=== PATIENT | male | born 1970 | race African-American/Black ===

== ENCOUNTER 2016-12-30 08:28 | Inpatient (IN) | payer BC ==
--- NOTE | 2016-12-20 13:50 | PREOPHP ---
DATE OF ADMISSION: 12/30/2016 PREOPERATIVE INTERNAL MEDICINE CONSULTATION/MEDICAL HISTORY AND PHYSICAL Patient to have surgery with Dr. Kwabena Daley at [facility] 12/30/2016. REASON FOR CONSULTATION: Consultation requested by Dr. Kwabena Daley for medical evaluation and cl earance of a 46-year-old gentleman about to undergo surgery on his left hip. Thank you, Dr. Daley, for allowing us to participate in the care of this patient. HISTORY OF PRESENT ILLNESS: Mustapha Stauffer, a 46-year-old gentleman with problems ambulating second ankit to left hip pain is currently being admitted for correction of the above problem. In terms of h is prior surgical history, had a partial hip replacement on the right, which he was very pleased wit h and had arthroscopic surgery, 3 on his right knee and one on his left knee and also had left shoul marquita arthroscopic procedure. He has had no medical hospitalizations, has not broken any big bones. D oes not take any chronic medications. ALLERGIES: NOT ALLERGIC TO ANY MEDICATIONS. SOCIAL HISTORY: The patient is single, has 3 children in good health. He does not smoke. Alcohol socially. Does drink coffee. He is employed and usually does not have any difficulty sleeping at [facility]. FAMILY HISTORY: Both parents are alive. Father is 72, mother 69, both in good health. Two sisters are in good health. He knows of no family history of diabetes, heart, cancer, hypertension or stro ke. REVIEW OF SYSTEMS HEENT: Periodic headaches. CARDIORESPIRATORY: Denies any chest pain or shortness of breath. GASTROINTESTINAL: No melena or hematemesis. GENITOURINARY: No urgency, frequency. MUSCULOSKELETAL: Positive for left hip pain. NEUROPSYCHIATRIC: Unremarkable. GENERAL HEALTH: As above. PHYSICAL EXAMINATION: VITAL SIGNS: The patient's blood pressure was 130/80, pulse was 72 and regular, respirations were 1 8, temperature 98.7, height 71 inches, weight 220 pounds. GENERAL: The patient was noted to be a well-developed, well-nourished male, alert and cooperative, in no apparent acute distress, oriented to time, place, and person. HEAD, EARS, EYES, NOSE AND THROAT: Head was atraumatic. Eyes: Pupils were equal, reactive to ligh t and accommodation. Fundi were benign. Tympanic membranes were unremarkable. Nose was negative. Mouth was unremarkable. Fair oral hygiene was present. NECK: Supple without any rigidity. Trachea was midline. Thyroid was within normal limits. Neck v eins were flat. Carotid pulses were equal. No bruits were heard. BACK: Unremarkable. CHEST: Symmetrical. BREASTS AND AXILLARY: Did not reveal any masses. LUNGS: Clear to percussion and auscultation. HEART: PMI is fifth intercostal space at the midclavicular line. Regular sinus rhythm was noted. No significant murmurs, rubs, or gallops being elicited. ABDOMEN: Soft, good bowel sounds were noted. No significant organomegaly, masses, or tenderness. GENITALIA: Normal male external genitalia. RECTAL AND PROSTATIC: Per PCP. EXTREMITIES: Not revealing clubbing, edema or cyanosis. Peripheral pulses were physiologic. SKIN: Moist and warm without any eruptions. No gross lymphadenopathy was noted. NEUROLOGIC: Grossly intact. IMPRESSION: 1. Degenerative joint disease, left hip. 2. 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 3. Degenerative joint disease. 4. Stable health. DISCUSSION: Review of laboratory and other data revealed the following: The patient's chemistry pa bijal revealed normal electrolytes. Random glucose of 106, normal BUN and creatinine and liver functi on test, magnesium, CPK was minimally elevated. TSH, CBC, sed rate, UA, PT and PTT were normal. The patient's EKG was normal. Chest x-ray was normal as was his bladder scan, which revealed a residual of [address] Daley, I see no contraindication to this patient undergoing current proposed surgery under sigifredo ired form of anesthesia and will be more than happy to follow him with you during his stay at [facility]. Thank you again, Dr. Daley, for allowing us to participate in the care of this patient. Dictated By: WEI WEAVER/BROCK Conf#: [id number] DID#: [id number]
[2016-12-30] VITALS (28 sets, daily range): BP systolic 111–144; BP diastolic 59–88; PULSE 67–108; RESP 9–25; Ht 188 cm; Wt 99.0 kg
[~2016-12-30] VITALS: Ht 188 cm; Wt 99.0 kg
[~2016-12-30 08:28] MED LIST: LIDOCAINE 2% (SDV) 5 ML INJ ONE
--- NOTE | 2016-12-30 08:42 | HPN ---
Date/Time of Note Date/Time of Note DATE: 12/30/16 TIME: 08:42 Interval H&P Admission Note Pt. seen H&P reviewed: No system changes MARYAM BROWN MD December 30, 2016 08:42
[2016-12-30] MEDS ORDERED: oxyCODONE (CR) 10 MG TAB [oxyCONTIN] PO ONE (09:00)
[2016-12-30] MEDS ORDERED: CEFAZOLIN 2 GM/50 ML (PMX) 50 ML IVPB ONE (09:00)
[2016-12-30] MEDS ORDERED: LACTATED RINGER'S 1,000 ML IV* ONE (09:00)
[2016-12-30] MEDS ORDERED: DEXAMETHASONE 1 MG TAB PO ONE (09:00)
[2016-12-30] MEDS ORDERED: traMADol 50 MG TAB PO ONE (09:00)
[2016-12-30] MEDS ORDERED: GABAPENTIN 300 MG CAP PO ONE (09:00)
[2016-12-30] MEDS: BUPIVACAINE 0.5% (SDV) 30 ML, morphine SULFATE (PF) 8 MG, EPINEPHrine 0.3 MG, KETOROLAC... IRR SCH ×14 (09:00→11:45)
[2016-12-30] MEDS ORDERED: DOXY-220 PO (09:01)
[2016-12-30] MEDS ORDERED: NEOSTIGMINE 3 MG/3 ML SYRINGE ONE (09:54)
[2016-12-30] MEDS ORDERED: FENTAnyl 50 MCG/ML VIAL ONE (09:54)
[2016-12-30] MEDS ORDERED: ROCURONIUM 50 MG INJ ONE (09:54)
[2016-12-30] MEDS ORDERED: ONDANSETRON 4 MG INJ ONE (09:54)
[2016-12-30] MEDS ORDERED: DEXAMETHASONE 4 MG/ML 1 ML INJ ONE (09:54)
[2016-12-30] MEDS ORDERED: MIDAZOLAM 1 MG/ML 2 ML INJ ONE (09:54)
[2016-12-30] MEDS ORDERED: GLYCOPYRROLATE 0.4 MG INJ ONE (09:54)
[2016-12-30] MEDS ORDERED: PROPOFOL 0 ML ONE (09:54)
[2016-12-30] MEDS ORDERED: CEFAZOLIN 1 GM INJ ONE (09:54)
[2016-12-30] MEDS ORDERED: morphine SULFATE/PF (10 MG/10 ML) INJ ONE (09:55)
[2016-12-30] MEDS ORDERED: PROPOFOL 100 ML ONE (09:55)
[2016-12-30] MEDS ORDERED: CA CHLORIDE 10% 10 ML SYRINGE ONE (11:15)
[2016-12-30] MEDS ORDERED: POLYMYXIN/BACITRACIN 1L IRRIG ONE (11:15)
[2016-12-30] MEDS ORDERED: BUPIVACAINE 0.5%/EPI (SDV) 30 ML INJ ONE (11:15)
[2016-12-30] MEDS ORDERED: THROMBIN 5000 UNIT VIAL ONE (11:15)
[2016-12-30] MEDS: TRANEXAMIC ACID 1,000 MG in SOD CHLORIDE 0.9% 100 ML IVPB ONE ×2 (11:42→14:10)
[2016-12-30] MEDS: TRANEXAMIC ACID 1,000 MG in SOD CHLORIDE 0.9% 100 ML IV ONE ×2 (11:43→14:10)
[2016-12-30] MEDS ORDERED: ONDANSETRON 4 MG INJ IV PRN ×3 (12:30→14:00)
[2016-12-30] MEDS ORDERED: LABETALOL HCL 20MG INJ IV PRN (12:30)
[2016-12-30] MEDS ORDERED: NALOXONE (0.4 MG/ML) INJ IV PRN (12:30)
[2016-12-30] MEDS ORDERED: FENTAnyl 50 MCG/ML VIAL IV PRN ×3 (12:30)
[2016-12-30] MEDS ORDERED: EPHEDrine SULFATE 50 MG/5 ML SYG IV PRN (12:30)
[2016-12-30] MEDS ORDERED: hydrALAzine 20 MG INJ IV PRN (12:30)
[2016-12-30] MEDS ORDERED: HYDROmorphONE 1 MG/ML SYG IV PRN ×2 (12:30)
[2016-12-30] MEDS ORDERED: KETOROLAC 30 MG INJ IV PRN (12:30)
[2016-12-30] MEDS ORDERED: HYDROmorphONE (0.2 MG/ML) 10ML SYG IV PRN ×3 (12:30)
[2016-12-30] MEDS ORDERED: MIDAZOLAM 1 MG/ML 2 ML INJ IV PRN (12:30)
[2016-12-30] MEDS ORDERED: MEPERIDINE 25 MG INJ IV PRN (12:30)
[2016-12-30] MEDS ORDERED: TRIMETHOBENZAMIDE 100 MG/ML VIAL IM PRN ×2 (12:30)
[2016-12-30] MEDS ORDERED: DIPHENHYDRAMINE 50 MG INJ IV PRN ×3 (12:30→14:00)
[2016-12-30] MEDS ORDERED: NALBUPHINE HCL (10 MG/1 ML) INJ IV PRN (12:30)
[2016-12-30] MEDS: LACTATED RINGER'S 1,000 ML IV SCH ×2 (13:38→20:45)
[2016-12-30] MEDS ORDERED: BETHANECHOL 25 MG TAB PO PRN (14:00)
[2016-12-30] MEDS ORDERED: OXYCODONE/ACETAMINOPHEN (5/325) TAB PO PRN (14:00)
[2016-12-30] MEDS ORDERED: MAGNESIUM HYDROXIDE 30ML CUP PO PRN (14:00)
[2016-12-30] MEDS ORDERED: ACETAMINOPHEN 500 MG TAB PO PRN (14:00)
[2016-12-30] MEDS ORDERED: TRANEXAMIC ACID 1,000 MG in SOD CHLORIDE 0.9% 100 ML IV ONE (14:00)
[2016-12-30] MEDS ORDERED: morphine 4 MG/ML VIAL IV PRN (14:00)
[2016-12-30] MEDS ORDERED: ZOLPIDEM 5 MG TAB PO PRN (14:00)
[2016-12-30] MEDS ORDERED: morphine 2 MG INJ IV PRN (14:00)
[2016-12-30] MEDS ORDERED: KETOROLAC 15 MG INJ IV PRN (14:00)
--- NOTE | 2016-12-30 14:01 | OPR ---
DATE OF OPERATION: 12/30/2016 PREOPERATIVE DIAGNOSIS: Left hip primary osteoarthritis. POSTOPERATIVE DIAGNOSIS: Left hip primary osteoarthritis. PROCEDURE PERFORMED: Left total hip arthroplasty. SURGEON: Maryam Daley MD GENERAL I FARMWORKER: Trae Recinos PA-C Revenue Analyst surgeon, Trae Recinos PA-C, was asked to be present at my request as a result of the complexity associated with this procedure, including positioning of the extremity, manipulation and protection of the neurovascular structures. In my opinion, the assistance offered by a carpet technician is insufficient and Mr. Recinos should be compensated for his time. PROCEDURE IN DETAIL: Following administration of general endotracheal anesthesia, the patient was placed in the supine position. Spinal anesthetic was applied prior to induction of general. A Mendoza catheter was placed under sterile technique. Lateral incision was then made, following sterile prep and drape. The incision was carried through the tensor. The tensor was retracted after incising it. Anterior capsule was exposed. Capsulotomy was performed. Severe arthritic changes were noted. Capsulectomy was then completed. The femoral head cut was then made in the appropriate degree of version and inclination followed by removal of the head. Severe arthritic changes were noted on the acetabulum as well. Peripheral osteophytes were removed and the acetabulum was then reamed up to the 53 mm size. A 54 mm Whipple cup was then implanted with a standard liner. A 35 mm screw was implanted prior for fixation. Solid fixation was obtained throughout. The femoral shaft was then prepared and a 12 mm Corail device was seen to be the best fit with a Zirconium femoral head. The actual components were then implanted and taken through a full range of motion with no instability. Radiographic imaging confirmation was then used to confirm a position of 47 degrees of abduction of the cup and 25 degrees of anteversion. Solid fixation was obtained. Good position of the lesser trochanter. The wound was then thoroughly irrigated, closed in layers including a Prineo dressing for the final cover. Following this, the patient was extubated and transported to recovery in stable condition. Estimated blood loss for this procedure was 250 mL. Postoperative x-rays will be obtained in the recovery room as well as a CBC. Dictated By: MARYAM KRUGER/BROCK Conf#: [id number] DID#: [id number] MTDD
[2016-12-30] MEDS: CEFAZOLIN 1 GM/50 ML (PMX) 50 ML IVPB SCH ×2 (15:04→22:01)
[2016-12-30 15:25] LABS: ADD SCAN DIFF NO
[2016-12-30 15:27] LABS: BASOPHILS % 0.1 % (0.0-2.0); EOSINOPHILS % 0.2 % (0.0-7.0); HEMATOCRIT 41.8 % (42.0-52.0); HEMOGLOBIN 13.2 g/dl (14.0-18.0); LYMPHOCYTES # 0.9 10^3/ul (0.8-2.9); LYMPHOCYTES % 9.2 % (15.0-51.0); MEAN CORPUSCULAR HEMOGLOBIN 27.5 pg (29.0-33.0); MEAN CORPUSCULAR HGB CONC 31.6 g/dl (32.0-37.0); MEAN CORPUSCULAR VOLUME 87.1 fl (82.0-101.0); MEAN PLATELET VOLUME 10.6 fl (7.4-10.4); MONOCYTE # 0.1 10^3/ul (0.3-0.9); MONOCYTES % 1.2 % (0.0-11.0); NEUTROPHIL # 8.3 10^3/ul (1.6-7.5); NEUTROPHILS % 88.7 % (39.0-77.0); PLATELET COUNT 171 10^3/UL (140-415); WHITE BLOOD COUNT 9.4 10^3/ul (4.8-10.8)
--- NOTE | 2016-12-30 16:23 | RADRPT ---
PROCEDURE: Intraoperative imaging of the left hip with fluoroscopy. CLINICAL INDICATION: Left hip pain. Intraoperative. TECHNIQUE: 6 images of the left hip were obtained in the operating room with an image intensifier. No radiologist was in attendance. 0.4 minutes of fluoroscopy time was used. COMPARISON: No prior study is available for comparison. FINDINGS: Images demonstrate placement of a total left hip arthroplasty. IMPRESSION: 1. Satisfactory intraoperative imaging of the left hip. RPTAT: QQ .Humberto Duke MD, MD Date Time Electronically viewed and signed by .Humberto Duke MD, on 12/30/2016 16:23 .R/
--- NOTE | 2016-12-30 16:35 | RADRPT ---
PROCEDURE: XR Pelvis CLINICAL INDICATION: Status post total hip replacement TECHNIQUE: To AP radiographs were submitted. COMPARISON: Comparison to the intraoperative study done earlier on the same date. FINDINGS: Osseous structures: There is again a well seated total left hip replacement with slight postoperativ e subcutaneous air noted. There is a long right femoral head replacement. The remaining osseous el ements appear intact. Joint spaces: The prosthetic hip joints are anatomically maintained. the sacroiliac joints appear u nremarkable without significant erosions or sclerosis. Soft tissues: Subcutaneous air is noted. IMPRESSION: 1. Well seated total left hip replacement with postop of subcutaneous air evident. 2. A right femoral head replacement is evident. Physician Lois Date Time Electronically viewed and signed by Physician Lois on 12/30/2016 16:35 /
[2016-12-30] MEDS: DEXAMETHASONE 2 MG TAB PO SCH ×2 (18:00→23:58)
--- NOTE | 2016-12-30 19:16 | CONS ---
DATE OF ADMISSION: 12/30/2016 DATE OF CONSULTATION: The patient had surgery with Dr. Kwabena Daley this afternoon. The patient seen in postop consult followup after a total hip replacement on the left side. The patient is alert in the recovery room where he is being seen and has no major complaints. PHYSICAL EXAMINATION: VITAL SIGNS: The patient's vital signs reveal the following: The patient is afebrile. His pulse is in the 70s, respiratory rate is 14, O2 sat is 97% and his blood pressure is 140/89. HEENT: Unremarkable. LUNGS: Clear. HEART: Reveals a regular rhythm. The rest of the exam is unremarkable. IMPRESSION: 1. Status post total hip replacement on the left side for degenerative joint disease of the left hip. 2. 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 3. Degenerative joint disease. 4. Stable health. DISCUSSION: The patient underwent total hip replacement today, is awaiting a room on the floor. Overall seems to be quite stable at this point in time. Thank you again, Dr. Daley, for allowing us to participate in the care of this patient. We will follow him along with you during his stay at [facility]. Dictated By: WEI WEAVER/BROCK Conf#: [id number] DID#: [id number]
[2016-12-30] MEDS: GABAPENTIN 300 MG CAP PO SCH (21:00)
[2016-12-30] MEDS: SENNA/DOCUSATE NA (8.6MG/50MG) TAB PO SCH (21:00)
[2016-12-31 00:05] VITALS: BP 117/72; PULSE 103; RESP 20
[2016-12-31 05:16] LABS: ADD SCAN DIFF NO
[2016-12-31] MEDS: DEXAMETHASONE 2 MG TAB PO SCH ×2 (05:18→12:44)
[2016-12-31] MEDS: LACTATED RINGER'S 1,000 ML IV SCH ×2 (05:18→16:45)
[2016-12-31] MEDS: CEFAZOLIN 1 GM/50 ML (PMX) 50 ML IVPB SCH (05:18)
[2016-12-31 05:24] LABS: BASOPHILS % 0.1 % (0.0-2.0); HEMATOCRIT 37.3 % (42.0-52.0); MEAN CORPUSCULAR HEMOGLOBIN 26.9 pg (29.0-33.0); MEAN CORPUSCULAR HGB CONC 32.2 g/dl (32.0-37.0); MEAN CORPUSCULAR VOLUME 83.6 fl (82.0-101.0); MEAN PLATELET VOLUME 11.1 fl (7.4-10.4); MONOCYTES % 7.3 % (0.0-11.0); PLATELET COUNT 177 10^3/UL (140-415); RED BLOOD COUNT 4.46 10^6/ul (4.70-6.10); RED CELL DISTRIBUTION WIDTH 13.1 % (11.5-14.5); WHITE BLOOD COUNT 14.1 10^3/ul (4.8-10.8)
--- NOTE | 2016-12-31 07:47 | PN ---
Date/Time of Note Date/Time of Note DATE: 12/31/16 TIME: 07:43 Assessment/Plan VTE Prophylaxis VTE Prophylaxis Intervention: ambulation, other (aspirin) Lines/Catheters IV Catheter Type (from Nrsg): Saline Lock Central line still needed: No Urinary Cath still in place: No Assessment/Plan Chief Complaint/Hosp Course POD1 left anterior total hip arthroplasty Problems: Assessment/Plan POD L MARY ANN, doing well.\ 1. PT/OT today 2. continue pain control with oral pain meds 3. Home when cleared by medicine and PT 4. regular diet Subjective 24 Hr Interval Summary Free Text/Dictation has some nausea this am, otherwise doing well. No CP/SOB Exam/Review of Systems Vital Signs Vitals Vital Signs Date Time Temp Pulse Resp B/P Pulse Ox O2 Delivery O2 Flow Rate FiO2 12/31/16 00:05 98.1 103 20 117/72 97 Room Air 12/30/16 14:47 2.0 Intake and Output 12/30/16 12/30/16 12/31/16 15:00 23:00 07:00 Intake Total 4520 ml 1050 ml 1400 ml Output Total 500 ml 450 ml 1750 ml Balance 4020 ml 600 ml -350 ml Exam LLE Toes warm and well perfused no pain with log roll incision clean and dry able to dorsiflex and plantarflex foot with full strength Constitutional: alert, oriented, well developed Psych: no complaints Head: normocephalic Respiratory: normal air movement Cardiovascular: nl pulses Extremities: normal pulses Results Result Diagram: 12/31/16 0435 Results 24 hrs Laboratory Tests Test 12/30/16 15:15 12/31/16 04:35 White Blood Count 9.4 14.1 #H Red Blood Count 4.80 4.46 L Hemoglobin 13.2 L 12.0 L Hematocrit 41.8 L 37.3 L Mean Corpuscular Volume 87.1 83.6 Mean Corpuscular Hemoglobin 27.5 L 26.9 L Mean Corpuscular Hemoglobin Concent 31.6 L 32.2 Red Cell Distribution Width 13.0 13.1 Platelet Count 171 177 Mean Platelet Volume 10.6 H 11.1 H Neutrophils % 88.7 H 85.0 H Lymphocytes % 9.2 L 7.0 L Monocytes % 1.2 7.3 Eosinophils % 0.2 0.0 Basophils % 0.1 0.1 Nucleated Red Blood Cells % 0.0 0.0 Neutrophils # 8.3 H 12.0 H Lymphocytes # 0.9 1.0 Monocytes # 0.1 L 1.0 H Eosinophils # 0.0 0.0 Basophils # 0.0 0.0 Nucleated Red Blood Cells # 0.0 0.0 Medications Medications Current Medications Lactated Ringer's (Lr) 1,000 ml @ 10 mls/hr Q24H ONCE IV* Last administered on 12/30/16 09:00; Admin Dose 10 MLS/HR; Start 12/30/16 at 09:00; Stop at 08:59 Hydromorphone HCl (Dilaudid) 0.2 mg Q2H PRN IV PAIN LEVEL 1-5; Start 12/30/16 at 12:30; Stop 12/31/16 at 11:49 Hydromorphone HCl (Dilaudid) 0.4 mg Q2H PRN IV PAIN LEVEL 6-10; Start 12/30/16 at 12:30; Stop 12/31/16 at 11:49 Ketorolac Tromethamine (Toradol) 30 mg Q6H PRN IV PAIN LEVEL 6-10; Start at 12:30; Stop 12/31/16 at 11:49 Diphenhydramine HCl (Benadryl) 25 mg Q4H PRN IV PRURITUS; Start 12/30/16 at 12: 30; Stop 12/31/16 at 11:49 Nalbuphine HCl (Nubain) 10 mg Q4H PRN IV PRURITUS; Start 12/30/16 at 12:30; Stop 12/31/16 at 11:49 Ondansetron HCl (Zofran Inj) 4 mg Q6H PRN IV NAUSEA AND/OR VOMITING Last administered on 12/30/16 20:45; Admin Dose 4 MG; Start 12/30/16 at 12:30; Stop 12/31/16 at 11:49 Trimethobenzamide HCl (Tigan) 200 mg Q6H PRN IM NAUSEA AND/OR VOMITING; Start 12/30/16 at 12:30; Stop 12/31/16 at 11:49 Naloxone HCl (Narcan) 0.2 mg Q2M PRN IV FOR RESP RATE 8 OR LESS; Start at 12:30; Stop 12/31/16 at 11:49 Senna/Docusate Sodium (Senokot-S) 1 tab BID PO ; Start 12/30/16 at 21:00 Simethicone (Mylicon) 80 mg TID PRN PO DISTENSION/GAS/BLOATING; Start 12/30/16 at 14:00 Magnesium Hydroxide (Milk Of Mag) 30 ml BID PRN PO CONSTIPATION; Start at 14:00 Acetaminophen (Tylenol Tab) 1,000 mg Q4H PRN PO TEMP GREATER THAN 100.4F; Start 12/30/16 at 14:00 Dexamethasone (Decadron) 2 mg Q6 PO Last administered on 12/31/16 05:18; Admin Dose 2 MG; Start 12/30/16 at 18:00; Stop 12/31/16 at 12:01 Gabapentin (Neurontin) 300 mg HS PO ; Start 12/30/16 at 21:00 Oxycodone/ Acetaminophen (Percocet (5/ 325)) 1 tab Q4H PRN PO PAIN LEVEL 1-5; Start 12/30/16 at 14:00 Oxycodone/ Acetaminophen (Percocet (5/ 325)) 2 tab Q4H PRN PO PAIN LEVEL 6-10; Start 12/30/16 at 14:00 Morphine Sulfate (morphine) 2 mg Q2H PRN IV PAIN LEVEL 1-5; Start 12/30/16 at 14:00 Morphine Sulfate (morphine) 4 mg Q4H PRN IV PAIN LEVEL 6-10; Start 12/30/16 at 14:00 Ketorolac Tromethamine (Toradol) 15 mg Q6H PRN IV PAIN; Start 12/30/16 at 14:00 ; Stop 01/02/17 at 13:59 Ondansetron HCl (Zofran Inj) 4 mg Q6H PRN IV NAUSEA AND/OR VOMITING; Start at 14:00 Diphenhydramine HCl (Benadryl) 25 mg Q6H PRN IV PRURITUS; Start 12/30/16 at 14: 00 Aspirin 325 mg 325 mg BID PO ; Start 12/31/16 at 09:00 Lactated Ringer's (Lr) 1,000 ml @ 100 mls/hr Q10H IV Last administered on 12/31 05:18; Admin Dose 100 MLS/HR; Start 12/30/16 at 13:38 ABBE COVARRUBIAS MD December 31, 2016 07:47
[2016-12-31 08:00] VITALS: BP 152/80; RESP 19
--- NOTE | 2016-12-31 08:41 | CONS ---
DATE OF ADMISSION: 12/30/2016 DATE OF CONSULTATION: 12/31/2016 POSTOPERATIVE CONSULT FOLLOWUP SUBJECTIVE: The patient is alert and feeling relatively well, complaining of some minor pain in his hip but otherwise pleasantly surprised that he is not experiencing more pain. OBJECTIVE: VITAL SIGNS: Reveal the following: The patient's blood pressure was 117/72, pulse 72 and regular, respirations 19, temperature 97.7, O2 saturation 94% on room air. HEENT: Unremarkable. LUNGS: Clear. HEART: Reveals a regular rhythm. NEUROLOGIC: Unremarkable. IMPRESSION: 1. Status post total hip replacement on the left side. 2. Status post partial hip replacement in the past on the right. 3. Degenerative joint disease. 4. Stable health. DISCUSSION: Review of laboratory and other data reveals the following: The patient's CBC reveals a white count of 14.1, probably secondary to steroid injections. Otherwise, no other lab is availabl e. Plan as per Dr. Daley. He will be ambulating more today, and medically, the patient is stable. Thank you again, Dr. Daley, for allowing us to participate in the care of this patient. Dictated By: WEI MARTEL MD SS/NTS Conf#: [id number] DID#: [id number]
[2016-12-31] MEDS: SENNA/DOCUSATE NA (8.6MG/50MG) TAB PO SCH ×2 (09:10→20:17)
[2016-12-31] MEDS: ASPIRIN (EC) 325 MG TAB PO SCH ×2 (09:10→20:17)
[2016-12-31] MEDS: OXYCODONE/ACETAMINOPHEN (5/325) TAB PO PRN (15:18)
[2016-12-31] MEDS: GABAPENTIN 300 MG CAP PO SCH (20:18)
[2016-12-31 21:18] VITALS: BP 119/60; RESP 19
[2017-01-01] MEDS: LACTATED RINGER'S 1,000 ML IV SCH ×3 (02:03→21:14)
[2017-01-01 05:43] LABS: ADD SCAN DIFF NO
[2017-01-01 05:45] LABS: BASOPHILS % 0.1 % (0.0-2.0); EOSINOPHILS % 0.1 % (0.0-7.0); HEMATOCRIT 37.2 % (42.0-52.0); HEMOGLOBIN 12.2 g/dl (14.0-18.0); LYMPHOCYTES # 1.5 10^3/ul (0.8-2.9); MEAN CORPUSCULAR HEMOGLOBIN 27.4 pg (29.0-33.0); MEAN CORPUSCULAR HGB CONC 32.8 g/dl (32.0-37.0); MEAN CORPUSCULAR VOLUME 83.6 fl (82.0-101.0); MEAN PLATELET VOLUME 11.4 fl (7.4-10.4); MONOCYTE # 1.1 10^3/ul (0.3-0.9); NEUTROPHIL # 9.5 10^3/ul (1.6-7.5); NEUTROPHILS % 78.1 % (39.0-77.0); PLATELET COUNT 181 10^3/UL (140-415); RED BLOOD COUNT 4.45 10^6/ul (4.70-6.10); WHITE BLOOD COUNT 12.1 10^3/ul (4.8-10.8)
[2017-01-01] MEDS: OXYCODONE/ACETAMINOPHEN (5/325) TAB PO PRN ×3 (06:50→21:15)
[2017-01-01 07:50] VITALS: BP 133/85; RESP 17
[2017-01-01] MEDS: SENNA/DOCUSATE NA (8.6MG/50MG) TAB PO SCH ×2 (08:10→21:14)
[2017-01-01] MEDS: ASPIRIN (EC) 325 MG TAB PO SCH ×2 (08:10→21:14)
--- NOTE | 2017-01-01 09:09 | PN ---
Date/Time of Note Date/Time of Note DATE: 01/01/17 TIME: 09:06 Assessment/Plan VTE Prophylaxis VTE Prophylaxis Intervention: ambulation, SCD's, other (aspirin) Lines/Catheters IV Catheter Type (from Nrsg): Saline Lock Central line still needed: No Urinary Cath still in place: No Assessment/Plan Chief Complaint/Hosp Course POD2 left anterior total hip arthroplasty Problems: Assessment/Plan POD 2 L MARY ANN, doing well. 1. PT/OT today 2. continue pain control with oral pain meds 3. Home today Subjective 24 Hr Interval Summary Free Text/Dictation Doing well. Was able to get more sleep last night. Worked well with PT yesterday. Constitutional: no complaints Respiratory: no complaints Cardiovascular: no complaints Exam/Review of Systems Vital Signs Vitals Vital Signs Date Time Temp Pulse Resp B/P Pulse Ox O2 Delivery O2 Flow Rate FiO2 01/01/17 07:50 97.5 65 17 133/85 100 12/31/16 00:05 Room Air 12/30/16 14:47 2.0 Intake and Output 12/31/16 12/31/16 01/01/17 15:00 23:00 07:00 Intake Total 600 ml 1350 ml 1200 ml Output Total 1400 ml 1150 ml Balance 600 ml -50 ml 50 ml Exam LLE: Incision clean and dry foot wwp able to demonstrate full strength in plantarflexion and dorsiflexion of the foot 2+PT/DP Constitutional: alert, oriented Psych: no complaints Respiratory: normal air movement Extremities: normal pulses Results Result Diagram: 01/01/17 0442 Results 24 hrs Laboratory Tests Test 01/01/17 04:42 White Blood Count 12.1 H Red Blood Count 4.45 L Hemoglobin 12.2 L Hematocrit 37.2 L Mean Corpuscular Volume 83.6 Mean Corpuscular Hemoglobin 27.4 L Mean Corpuscular Hemoglobin Concent 32.8 Red Cell Distribution Width 13.0 Platelet Count 181 Mean Platelet Volume 11.4 H Neutrophils % 78.1 H Lymphocytes % 12.0 L Monocytes % 9.0 Eosinophils % 0.1 Basophils % 0.1 Nucleated Red Blood Cells % 0.0 Neutrophils # 9.5 H Lymphocytes # 1.5 Monocytes # 1.1 H Eosinophils # 0.0 Basophils # 0.0 Nucleated Red Blood Cells # 0.0 Medications Medications Current Medications Senna/Docusate Sodium (Senokot-S) 1 tab BID PO Last administered on 01/01/17 08:10; Admin Dose 1 TAB; Start 12/30/16 at 21:00 Simethicone (Mylicon) 80 mg TID PRN PO DISTENSION/GAS/BLOATING; Start 12/30/16 at 14:00 Magnesium Hydroxide (Milk Of Mag) 30 ml BID PRN PO CONSTIPATION; Start at 14:00 Acetaminophen (Tylenol Tab) 1,000 mg Q4H PRN PO TEMP GREATER THAN 100.4F; Start 12/30/16 at 14:00 Gabapentin (Neurontin) 300 mg HS PO Last administered on 12/31/16 20:18; Admin Dose 300 MG; Start 12/30/16 at 21:00 Oxycodone/ Acetaminophen (Percocet (5/ 325)) 1 tab Q4H PRN PO PAIN LEVEL 1-5; Start 12/30/16 at 14:00 Oxycodone/ Acetaminophen (Percocet (5/ 325)) 2 tab Q4H PRN PO PAIN LEVEL 6-10 Last administered on 01/01/17 06:50; Admin Dose 2 TAB; Start 12/30/16 at 14:00 Morphine Sulfate (morphine) 2 mg Q2H PRN IV PAIN LEVEL 1-5; Start 12/30/16 at 14:00 Morphine Sulfate (morphine) 4 mg Q4H PRN IV PAIN LEVEL 6-10; Start 12/30/16 at 14:00 Ketorolac Tromethamine (Toradol) 15 mg Q6H PRN IV PAIN Last administered on 20:17; Admin Dose 15 MG; Start 12/30/16 at 14:00; Stop 01/02/17 at 13:59 Ondansetron HCl (Zofran Inj) 4 mg Q6H PRN IV NAUSEA AND/OR VOMITING; Start at 14:00 Diphenhydramine HCl (Benadryl) 25 mg Q6H PRN IV PRURITUS; Start 12/30/16 at 14: 00 Aspirin 325 mg 325 mg BID PO Last administered on 01/01/17 08:10; Admin Dose 325 MG; Start 12/31/16 at 09:00 Lactated Ringer's (Lr) 1,000 ml @ 100 mls/hr Q10H IV Last administered on 12/31t 05:18; Admin Dose 100 MLS/HR; Start 12/30/16 at 13:38 ABBE COVARRUBIAS MD January 01, 2017 09:09
[2017-01-01] MEDS ORDERED: ASPI325T32 PO (09:12)
[2017-01-01] MEDS ORDERED: Oxycodone/Acetamin (5/325) PO (09:12)
--- NOTE | 2017-01-01 09:46 | CONS ---
Date/Time of Note Date/Time of Note DATE: 01/01/17 TIME: 09:44 Assessment/Plan Assessment/Plan Problems: (1) Aftercare following left hip joint replacement surgery Status: Acute Comment: This gentleman is being fastidiously cooperative with advice of nursing staff physical therapy and OT. We will continue rehabilitative care. Expect good outcome and there is no evidence of untoward effects postoperatively as of this time. Stable for discharge. Consultation Date/Type/Reason Admit Date/Time December 30, 2016 at 08:28 Initial Consult Date 12/30/2016 Type of Consultation: Internal medicine Reason for Consultation Assist with medical issues postoperative Referring Provider: MARYAM BROWN MD 24 HR Interval Summary Free Text/Dictation Patient reports that he is doing well without complications. Some stiffness in the leg but working with physical therapy and using incentive spirometer Constitutional: no complaints Detailed Summary ENT: no complaints Respiratory: no complaints Cardiovascular: no complaints Gastrointestinal: no complaints Genitourinary: no complaints Musculoskeletal: other (Stiffness and modest pain on the affected left hip area ) Exam/Review of Systems Vital Signs Vitals Vital Signs Date Time Temp Pulse Resp B/P Pulse Ox O2 Delivery O2 Flow Rate FiO2 01/01/17 07:50 97.5 65 17 133/85 100 12/31/16 00:05 Room Air 12/30/16 14:47 2.0 Intake and Output 12/31/16 12/31/16 01/01/17 15:00 23:00 07:00 Intake Total 600 ml 1350 ml 1200 ml Output Total 1400 ml 1150 ml Balance 600 ml -50 ml 50 ml Exam Constitutional: alert, oriented Neck: non-tender, supple Respiratory: clear to auscultation, normal air movement Cardiovascular: nl pulses, regular rate and rhythm Gastrointestinal: nl liver, spleen, non-tender, soft Results Result Diagram: 01/01/17 0442 Results 24 hrs Laboratory Tests Test 01/01/17 04:42 White Blood Count 12.1 H Red Blood Count 4.45 L Hemoglobin 12.2 L Hematocrit 37.2 L Mean Corpuscular Volume 83.6 Mean Corpuscular Hemoglobin 27.4 L Mean Corpuscular Hemoglobin Concent 32.8 Red Cell Distribution Width 13.0 Platelet Count 181 Mean Platelet Volume 11.4 H Neutrophils % 78.1 H Lymphocytes % 12.0 L Monocytes % 9.0 Eosinophils % 0.1 Basophils % 0.1 Nucleated Red Blood Cells % 0.0 Neutrophils # 9.5 H Lymphocytes # 1.5 Monocytes # 1.1 H Eosinophils # 0.0 Basophils # 0.0 Nucleated Red Blood Cells # 0.0 Medications Medications Current Medications Senna/Docusate Sodium (Senokot-S) 1 tab BID PO Last administered on 01/01/17 08:10; Admin Dose 1 TAB; Start 12/30/16 at 21:00 Simethicone (Mylicon) 80 mg TID PRN PO DISTENSION/GAS/BLOATING; Start 12/30/16 at 14:00 Magnesium Hydroxide (Milk Of Mag) 30 ml BID PRN PO CONSTIPATION; Start at 14:00 Acetaminophen (Tylenol Tab) 1,000 mg Q4H PRN PO TEMP GREATER THAN 100.4F; Start 12/30/16 at 14:00 Gabapentin (Neurontin) 300 mg HS PO Last administered on 12/31/16 20:18; Admin Dose 300 MG; Start 12/30/16 at 21:00 Oxycodone/ Acetaminophen (Percocet (5/ 325)) 1 tab Q4H PRN PO PAIN LEVEL 1-5; Start 12/30/16 at 14:00 Oxycodone/ Acetaminophen (Percocet (5/ 325)) 2 tab Q4H PRN PO PAIN LEVEL 6-10 Last administered on 01/01/17 06:50; Admin Dose 2 TAB; Start 12/30/16 at 14:00 Morphine Sulfate (morphine) 2 mg Q2H PRN IV PAIN LEVEL 1-5; Start 12/30/16 at 14:00 Morphine Sulfate (morphine) 4 mg Q4H PRN IV PAIN LEVEL 6-10; Start 12/30/16 at 14:00 Ketorolac Tromethamine (Toradol) 15 mg Q6H PRN IV PAIN Last administered on 20:17; Admin Dose 15 MG; Start 12/30/16 at 14:00; Stop 01/02/17 at 13:59 Ondansetron HCl (Zofran Inj) 4 mg Q6H PRN IV NAUSEA AND/OR VOMITING; Start at 14:00 Diphenhydramine HCl (Benadryl) 25 mg Q6H PRN IV PRURITUS; Start 12/30/16 at 14: 00 Aspirin 325 mg 325 mg BID PO Last administered on 01/01/17 08:10; Admin Dose 325 MG; Start 12/31/16 at 09:00 Lactated Ringer's (Lr) 1,000 ml @ 100 mls/hr Q10H IV Last administered on 12/31 05:18; Admin Dose 100 MLS/HR; Start 12/30/16 at 13:38 DICK ANAYA MD January 01, 2017 09:46
[2017-01-01 19:47] VITALS: BP 123/72; PULSE 70; RESP 18
[2017-01-01] MEDS: GABAPENTIN 300 MG CAP PO SCH (21:14)
[2017-01-02] MEDS: OXYCODONE/ACETAMINOPHEN (5/325) TAB PO PRN ×2 (04:42→09:27)
[2017-01-02 05:33] LABS: ADD SCAN DIFF NO
[2017-01-02 05:38] LABS: BASOPHILS % 0.3 % (0.0-2.0); EOSINOPHILS # 0.2 10^3/ul (0.0-0.5); EOSINOPHILS % 1.8 % (0.0-7.0); HEMATOCRIT 39.2 % (42.0-52.0); HEMOGLOBIN 12.5 g/dl (14.0-18.0); LYMPHOCYTES # 2.6 10^3/ul (0.8-2.9); LYMPHOCYTES % 27.4 % (15.0-51.0); MEAN CORPUSCULAR HEMOGLOBIN 26.9 pg (29.0-33.0); MEAN CORPUSCULAR HGB CONC 31.9 g/dl (32.0-37.0); MEAN CORPUSCULAR VOLUME 84.3 fl (82.0-101.0); MONOCYTE # 0.8 10^3/ul (0.3-0.9); MONOCYTES % 8.6 % (0.0-11.0); NEUTROPHIL # 5.7 10^3/ul (1.6-7.5); NEUTROPHILS % 61.1 % (39.0-77.0); PLATELET COUNT 179 10^3/UL (140-415); RED BLOOD COUNT 4.65 10^6/ul (4.70-6.10); RED CELL DISTRIBUTION WIDTH 13.2 % (11.5-14.5); WHITE BLOOD COUNT 9.3 10^3/ul (4.8-10.8)
[2017-01-02 08:29] VITALS: BP 122/77; RESP 19
[2017-01-02] MEDS: SENNA/DOCUSATE NA (8.6MG/50MG) TAB PO SCH (09:26)
[2017-01-02] MEDS: ASPIRIN (EC) 325 MG TAB PO SCH (09:26)
--- NOTE | 2017-01-02 09:50 | PN ---
Date/Time of Note Date/Time of Note DATE: 01/02/17 TIME: 09:48 Assessment/Plan VTE Prophylaxis VTE Prophylaxis Intervention: ambulation, SCD's, other (aspirin) Lines/Catheters IV Catheter Type (from Nrsg): [place] [employer] line still needed: No Urinary Cath still in place: No Assessment/Plan Chief Complaint/Hosp Course POD3 left anterior total hip arthroplasty Problems: Assessment/Plan s/p L MARY ANN, doing well. 1. Home today 2. PT/OT prior to going home 3. Continue pain control with oral meds Subjective 24 Hr Interval Summary Free Text/Dictation Doing well today, wants to go home. Pain well controlled. Working with PT Constitutional: no complaints Respiratory: no complaints Cardiovascular: no complaints Gastrointestinal: no complaints Musculoskeletal: bone/joint pain Exam/Review of Systems Vital Signs Vitals Vital Signs Date Time Temp Pulse Resp B/P Pulse Ox O2 Delivery O2 Flow Rate FiO2 01/02/17 08:29 98.0 81 19 122/77 98 01/01/17 19:47 Room Air 12/30/16 14:47 2.0 Intake and Output 01/01/17 01/01/17 01/02/17 15:00 23:00 07:00 Intake Total 750 ml 1700 ml Output Total 1300 ml 1400 ml Balance -550 ml 300 ml Exam LLE: incision clean and dry, moderate swelling to left thigh normal sensation SP/DP/S/S/T full strength dorsiflexion and plantarflexion toes wwp Constitutional: alert, oriented Psych: no complaints Head: normocephalic Respiratory: normal air movement Cardiovascular: regular rate and rhythm Gastrointestinal: soft Extremities: normal pulses Results Result Diagram: 01/02/17 0440 Results 24 hrs Laboratory Tests Test 01/02/17 04:40 White Blood Count 9.3 # Red Blood Count 4.65 L Hemoglobin 12.5 L Hematocrit 39.2 L Mean Corpuscular Volume 84.3 Mean Corpuscular Hemoglobin 26.9 L Mean Corpuscular Hemoglobin Concent 31.9 L Red Cell Distribution Width 13.2 Platelet Count 179 Mean Platelet Volume 11.0 H Neutrophils % 61.1 Lymphocytes % 27.4 Monocytes % 8.6 Eosinophils % 1.8 Basophils % 0.3 Nucleated Red Blood Cells % 0.0 Neutrophils # 5.7 Lymphocytes # 2.6 Monocytes # 0.8 Eosinophils # 0.2 Basophils # 0.0 Nucleated Red Blood Cells # 0.0 Medications Medications Current Medications Senna/Docusate Sodium (Senokot-S) 1 tab BID PO Last administered on 01/02/17 09:26; Admin Dose 1 TAB; Start 12/30/16 at 21:00 Simethicone (Mylicon) 80 mg TID PRN PO DISTENSION/GAS/BLOATING; Start 12/30/16 at 14:00 Magnesium Hydroxide (Milk Of Mag) 30 ml BID PRN PO CONSTIPATION; Start at 14:00 Acetaminophen (Tylenol Tab) 1,000 mg Q4H PRN PO TEMP GREATER THAN 100.4F; Start 12/30/16 at 14:00 Gabapentin (Neurontin) 300 mg HS PO Last administered on 01/01/17 21:14; Admin Dose 300 MG; Start 12/30/16 at 21:00 Oxycodone/ Acetaminophen (Percocet (5/ 325)) 1 tab Q4H PRN PO PAIN LEVEL 1-5; Start 12/30/16 at 14:00 Oxycodone/ Acetaminophen (Percocet (5/ 325)) 2 tab Q4H PRN PO PAIN LEVEL 6-10 Last administered on 01/02/17 09:27; Admin Dose 2 TAB; Start 12/30/16 at 14:00 Morphine Sulfate (morphine) 2 mg Q2H PRN IV PAIN LEVEL 1-5; Start 12/30/16 at 14:00 Morphine Sulfate (morphine) 4 mg Q4H PRN IV PAIN LEVEL 6-10; Start 12/30/16 at 14:00 Ketorolac Tromethamine (Toradol) 15 mg Q6H PRN IV PAIN Last administered on 20:17; Admin Dose 15 MG; Start 12/30/16 at 14:00; Stop 01/02/17 at 13:59 Ondansetron HCl (Zofran Inj) 4 mg Q6H PRN IV NAUSEA AND/OR VOMITING; Start at 14:00 Diphenhydramine HCl (Benadryl) 25 mg Q6H PRN IV PRURITUS; Start 12/30/16 at 14: 00 Aspirin 325 mg 325 mg BID PO Last administered on 01/02/17 09:26; Admin Dose 325 MG; Start 12/31/16 at 09:00 Lactated Ringer's (Lr) 1,000 ml @ 100 mls/hr Q10H IV Last administered on 12/31t 05:18; Admin Dose 100 MLS/HR; Start 12/30/16 at 13:38 ABBE COVARRUBIAS MD January 02, 2017 09:50
[2017-01-02] MEDS: LACTATED RINGER'S 1,000 ML IV SCH (11:38)
--- NOTE | 2017-01-02 12:40 | PDOCDIS ---
Discharge Instructions DIAGNOSIS Discharge Diagnosis: Hip Arthritis CONDITION Patient Condition: Good HOME CARE INSTRUCTIONS: Diet Instructions: RegularSpecial Diet: CLEAR ACTIVITY: Activity Restrictions: Slowly Increase Activity Rest between Activity Do not operate Power Tool Avoid Heavy Housework Bathing Restrictions: Shower FOLLOW UP/APPOINTMENTS Appointments two weeks SCHOOL/WORK RELEASE May return to School/Work with: With Restrictions School/Work Release Comment: No hip extension for six weeks MARYAM BROWN MD January 02, 2017 12:40
--- NOTE | 2017-01-02 12:42 | DS ---
Date/Time of Note Date/Time of Note DATE: 01/02/17 TIME: 12:41 Discharge Summary Admission/Discharge Info Admit Date/Time December 30, 2016 at 08:28 Discharge Date/Time 01/02 Final Diagnosis Hip arthritis Patient Condition: Good Hospital Course POD3 left anterior total hip arthroplasty Home after PT and independent ambulation following a THR Home Meds Discontinued Reported Medications Doxycycline Monohydrate* (Doxycycline Monohydrate*) 100 Mg Tablet, 100 MG PO BID , TAB 12/30/16 Primary Care Provider Jon Ngo MD Pending Labs Laboratory Tests Test 01/02/17 04:40 White Blood Count 9.310^3/ul (4.8-10.8) Red Blood Count 4.6510^6/ul (4.70-6.10) Hemoglobin 12.5g/dl (14.0-18.0) Hematocrit 39.2% (42.0-52.0) Mean Corpuscular Volume 84.3fl (82.0-101.0) Mean Corpuscular Hemoglobin 26.9pg (29.0-33.0) Mean Corpuscular Hemoglobin Concent 31.9g/dl (32.0-37.0) Red Cell Distribution Width 13.2% (11.5-14.5) Platelet Count 88587^3/UL (140-415) Mean Platelet Volume 11.0fl (7.4-10.4) Neutrophils % 61.1% (39.0-77.0) Lymphocytes % 27.4% (15.0-51.0) Monocytes % 8.6% (0.0-11.0) Eosinophils % 1.8% (0.0-7.0) Basophils % 0.3% (0.0-2.0) Nucleated Red Blood Cells % 0.0/100WBC (0.0-0.0) Neutrophils # 5.710^3/ul (1.6-7.5) Lymphocytes # 2.610^3/ul (0.8-2.9) Monocytes # 0.810^3/ul (0.3-0.9) Eosinophils # 0.210^3/ul (0.0-0.5) Basophils # 0.010^3/ul (0.0-0.1) Nucleated Red Blood Cells # 0.010^3/ul (0.0-0.0) MARYAM BROWN MD January 02, 2017 12:42
--- NOTE | 2017-01-02 13:20 | CONS ---
Date/Time of Note Date/Time of Note DATE: 01/02/17 TIME: 13:19 Assessment/Plan Assessment/Plan Problems: (1) Aftercare following left hip joint replacement surgery Status: Acute Comment: Patient has done well with no evidence of any types of complication postoperatively. He is stable for discharge home is excellent rehabilitation candidate. Consultation Date/Type/Reason Admit Date/Time December 30, 2016 at 08:28 Initial Consult Date 12/30/2016 Type of Consultation: Internal medicine Reason for Consultation Medical assistance postop Referring Provider: MARYAM BROWN MD 24 HR Interval Summary Constitutional: no complaints (No fevers chills or sweats) Detailed Summary Respiratory: no complaints Cardiovascular: no complaints Exam/Review of Systems Vital Signs Vitals Vital Signs Date Time Temp Pulse Resp B/P Pulse Ox O2 Delivery O2 Flow Rate FiO2 01/02/17 08:29 98.0 81 19 122/77 98 01/01/17 19:47 Room Air 12/30/16 14:47 2.0 Intake and Output 01/01/17 01/01/17 01/02/17 15:00 23:00 07:00 Intake Total 750 ml 1700 ml Output Total 1300 ml 1400 ml Balance -550 ml 300 ml Exam Constitutional: alert, oriented Neck: non-tender, supple Respiratory: clear to auscultation, normal air movement Cardiovascular: nl pulses, regular rate and rhythm Extremities: normal pulses, other (No cord no tenderness distally) Results Result Diagram: 01/02/17 0440 Results 24 hrs Laboratory Tests Test 01/02/17 04:40 White Blood Count 9.3 # Red Blood Count 4.65 L Hemoglobin 12.5 L Hematocrit 39.2 L Mean Corpuscular Volume 84.3 Mean Corpuscular Hemoglobin 26.9 L Mean Corpuscular Hemoglobin Concent 31.9 L Red Cell Distribution Width 13.2 Platelet Count 179 Mean Platelet Volume 11.0 H Neutrophils % 61.1 Lymphocytes % 27.4 Monocytes % 8.6 Eosinophils % 1.8 Basophils % 0.3 Nucleated Red Blood Cells % 0.0 Neutrophils # 5.7 Lymphocytes # 2.6 Monocytes # 0.8 Eosinophils # 0.2 Basophils # 0.0 Nucleated Red Blood Cells # 0.0 Medications Medications Current Medications Senna/Docusate Sodium (Senokot-S) 1 tab BID PO Last administered on 5/21/17at 09:26; Admin Dose 1 TAB; Start 12/30/16 at 21:00 Simethicone (Mylicon) 80 mg TID PRN PO DISTENSION/GAS/BLOATING; Start 12/30/16 at 14:00 Magnesium Hydroxide (Milk Of Mag) 30 ml BID PRN PO CONSTIPATION; Start at 14:00 Acetaminophen (Tylenol Tab) 1,000 mg Q4H PRN PO TEMP GREATER THAN 100.4F; Start 12/30/16 at 14:00 Gabapentin (Neurontin) 300 mg HS PO Last administered on 01/01/17 21:14; Admin Dose 300 MG; Start 12/30/16 at 21:00 Oxycodone/ Acetaminophen (Percocet (5/ 325)) 1 tab Q4H PRN PO PAIN LEVEL 1-5; Start 12/30/16 at 14:00 Oxycodone/ Acetaminophen (Percocet (5/ 325)) 2 tab Q4H PRN PO PAIN LEVEL 6-10 Last administered on 01/02/17 09:27; Admin Dose 2 TAB; Start 12/30/16 at 14:00 Morphine Sulfate (morphine) 2 mg Q2H PRN IV PAIN LEVEL 1-5; Start 12/30/16 at 14:00 Morphine Sulfate (morphine) 4 mg Q4H PRN IV PAIN LEVEL 6-10; Start 12/30/16 at 14:00 Ketorolac Tromethamine (Toradol) 15 mg Q6H PRN IV PAIN Last administered on 20:17; Admin Dose 15 MG; Start 12/30/16 at 14:00; Stop 01/02/17 at 13:59 Ondansetron HCl (Zofran Inj) 4 mg Q6H PRN IV NAUSEA AND/OR VOMITING; Start at 14:00 Diphenhydramine HCl (Benadryl) 25 mg Q6H PRN IV PRURITUS; Start 12/30/16 at 14: 00 Aspirin 325 mg 325 mg BID PO Last administered on 01/02/17 09:26; Admin Dose 325 MG; Start 12/31/16 at 09:00 Lactated Ringer's (Lr) 1,000 ml @ 100 mls/hr Q10H IV Last administered on 12/31 05:18; Admin Dose 100 MLS/HR; Start 12/30/16 at 13:38 DICK ANAYA MD January 02, 2017 13:20
== END 2017-01-02 14:40 | disposition home or self-care (01) | DRG 470 ==
LOC: REC 08:28 → MS1 20:15
PROVIDERS: ADMIT Orthopaedic Surgery; ATTEND Orthopaedic Surgery
PROC: 0SRB04A Replacement of Left Hip Joint with Ceramic on Polyethylene Synthetic Substitute, Uncemented, Open Approach (ICD-10-PCS; principal; 2016-12-30 11:00)
DX: M16.12 Unilateral primary osteoarthritis, left hip (principal); Z96.641 Presence of right artificial hip joint
CPT/HCPCS: 72170; 73530; 85025; 86999; 97110; 97116; 97162; 97530; C1713; C1776; J0171; J0690; J0735; J1100; J1885; J2250; J2274; J2405; J2710; J3010; J3370; J7120